=== PATIENT | female | born 1960 | race Caucasian/White ===

== ENCOUNTER 2018-08-25 05:27 | Day surgery (SDC) | payer OTHER ==
[~2018-08-25] VITALS: Ht 170.2 cm; Wt 104.3 kg
--- NOTE | ~2018-08-25 | H ---
[facility] [place] [address] HISTORY AND PHYSICAL Name: YIFAN SHIPLEY Room #: PRE [facility] M.R.#: [id number] Admission: Attend Phys: Humphrey Ruelas MD Discharge: Date of : 64 Report #: [id number] THIS REPORT FOR: //name// CC: FAM unknown Humphrey Ruelas DATE OF SERVICE: 08/25/2018 PREOPERATIVE DIAGNOSIS: Upper back mass/lipoma. HISTORY OF PRESENT ILLNESS: The patient is a 58-year-old who has had a lump in the upper part of her back for a couple of years. This has been getting bigger recently. The patient has not had any issues in this area before. She did have a small cyst removed from the back of the neck long time ago. The patient does complain of some discomfort in this area and its increasing size. No drainage, no redness. The patient is seen in the office and does have a fairly significant lipoma or mass in the upper back, likely a lipoma. The patient is recommended to have it removed. PAST MEDICAL HISTORY: The patient denies any heart disease, high blood pressure, diabetes, lung disease, liver disease, kidney disease, bleeding disorder or history of blood clot. The patient had knee injury from skiing accident in 1986. Had surgery for that. The patient had in 1996. MEDICATIONS: She takes citalopram 30 mg once a day. ALLERGIES: No allergies. FAMILY HISTORY: There is heart disease and cancer in the family. SOCIAL HISTORY: The patient works in [employer]. Smokes half a pack a day. Rarely drinks. REVIEW OF SYSTEMS: Unremarkable. No headache, chest pain, shortness of breath, palpitation. No numbness or weakness. PHYSICAL EXAMINATION: GENERAL: Well-nourished female, in no acute distress. She is alert and oriented. HEENT: Pupils react to light. Extraocular muscles are intact. NECK: Soft and supple, no masses. There is a soft mass in the mid part of the upper back. It is moderately distinct. It is soft and mobile, consistent with the subcutaneous lipoma. No other back lesion. ABDOMEN: Soft, nondistended, nontender. HEART: Regular rate and rhythm. LUNGS: Clear to auscultation. [facility] [address] [place] [address] HISTORY AND PHYSICAL Name: YIFAN SHIPLEY Room #: [facility] M.R.#: [id number] Admission: Attend Phys: Humphrey Ruelas MD Discharge: Date of : 64 Report #: [id number] EXTREMITIES: No cyanosis, clubbing, or edema. IMPRESSION: The patient is a 57-year-old with a mass in the back, which is consistent with a lipoma. It has been increasing in size. The patient is recommended to have this removed. The patient will be brought in for sedation for procedure under IV sedation. The patient understands the procedure. Possible placing a drain. The patient wished to proceed. By: [id number] Humphrey Ruelas MD /[place]
--- NOTE | ~2018-08-25 | O ---
[facility] [place] [address] OPERATIVE REPORT Name: YIFAN SHIPLEY Room #: 150-[facility] M.R.#: [id number] Admission: 08/25/18 Attend Phys: Humphrey Ruelas MD Discharge: Date of : 64 Report #: [id number] THIS REPORT FOR: //name// CC: FAM unknown Humphrey Ruelas PREOPERATIVE DIAGNOSIS: The patient has a mass in the upper back, just below the neck. This is likely a lipoma. POSTOPERATIVE DIAGNOSIS: The patient has a mass in the upper back, just below the neck. This is likely a lipoma. PROCEDURE PERFORMED: Excision of mass/lipoma, upper back. ANESTHESIA: IV sedation, local 0.25% Marcaine. COMPLICATIONS: None. ESTIMATED BLOOD LOSS: 50 mL. DESCRIPTION OF PROCEDURE: With the patient under IV sedation, placed in the lateral position, her upper back was prepped and draped in a sterile fashion. A 0.25% Marcaine was used to anesthetize the skin. A transverse incision was made. After incising through the skin and subcutaneous tissue, approximately a centimeter of subcutaneous fat was left in. This lipoma was not very well demarcated. I started to dissect the superior aspect and then the inferior aspect. This was carried proximally 4 cm under the incision in both directions. This was also carried laterally slightly further out from the incision and then the mass lipoma was trimmed off of the posterior fascia. There were multiple arteries that were cauterized and hemostasis obtained. Irrigation was performed. The subcutaneous tissue was brought together with 3-0 PDS in the subcutaneous in the fascia. Multiple interrupted sutures were used. Skin was closed with 4-0 PDS running subcuticular fashion. Dermabond and 4 x 4 OpSite were used for dressing. The patient tolerated procedure well. By: [id number] Humphrey Ruelas MD /nt
--- NOTE | ~2018-08-25 | PATH ---
[facility] [address] [place] [address] PATHOLOGY RPT PROCEDURE Name: KELLEY KAN Room #: DEP [facility] M.R.#: [id number] Admission: 08/25/18 Date of : 64 Discharge: 08/25/18 Report #: [id number] Path Case #: [id number] [facility] Accession Number: [id number] . 01 Material submitted: . MID UPPER BACK LIPOMA . 01 Clinical history: . Mass/lipoma upper back . 02 Diagnosis: Mature adipose tissue, mid upper back lipoma, excision: - Compatible with a lipoma associated with congestion and areas of fat necrosis. . (IUV:mml; 08/27/18) QLM/08/27/2018 . 02 Electronically signed: . Jessica Tierney MD, Pathologist NPI- [id number] . 01 Gross description: . The specimen is received in formalin, labeled "Kelley Kan, mid upper back lipoma" and consists of 3 segments of yellow-orange soft tissue measuring between 2.4 x 1.8 x 0.5 cm and 8.2 x 5.3 x 1.5 cm. They are inked black and sectioned to reveal homogeneous yellow-orange cut surfaces with scattered white fibrous streaks. No nodules or mass lesions are identified. Library Cataloging Technician sections are submitted in A1-A3. (SDY; 08/25/2018) SYU/SYU . 02 Pathologist provided ICD-10: D17.79 . 02 CPT . 127560 Specimen Comment: A courtesy copy of this report has been sent to Specimen Comment: [phone]. Specimen Comment: Report sent to Performed at: [address] [id number] MD Juan Erickson MD Phone: [phone] Performed at: [address] [id number] [address] [address] PATHOLOGY RPT PROCEDURE Name: KELLEY KAN Room #: DEP [facility] Madhav#: [id number] Admission: 08/25/18 Date of : 64 Discharge: 08/25/18 Report #: [id number] Path Case #: [id number] MD Jessica Tierney MD Phone: [phone]
[~2018-08-25 05:27] MED LIST: CELEXA 20 MG TA20 MG PO
[2018-08-25 08:38] LABS: HEMATOCRIT 42.8 % (37.0-47.0); HEMOGLOBIN 14.3 gm/dL (12.0-15.0)
[2018-08-25 09:00] VITALS: BP 115/60
[2018-08-25] MEDS ORDERED: NORCO 5-325 TA1 EACH PO (11:31)
== END 2018-08-25 12:20 | disposition home or self-care (01) ==
LOC: OR 05:27 → TBA 05:27 → OR 07:40
PROVIDERS: Surgery
DX: D17.1 Benign lipomatous neoplasm of skin and subcutaneous tissue of trunk (principal); F32.9 Major depressive disorder, single episode, unspecified; F41.9 Anxiety disorder, unspecified; F17.210 Nicotine dependence, cigarettes, uncomplicated; Z98.890 Other specified postprocedural states; Z79.899 Other long term (current) drug therapy
CPT/HCPCS: 50010; 50101; 50386; 54118; 56526; 56527; 62110; 62850; 70005